=== PATIENT | male | born 1935 ===

== ENCOUNTER → 2019-05-26 | Emergency (ER) | payer OTHER ==
[~2019-05-26] VITALS: Ht 170.2 cm; Wt 74.4 kg
[~2019-05-26] MED LIST: ASPIR 8181 MG; ATORVASTATIN CA10 MG; LISINOPRIL10 MG; MONTELUKAST SOD10 MG; PRAVASTATIN SOD40 MG; SYNTHROID88 MCG
== END | disposition left against medical advice (07) ==
LOC: ER 08:38
DX: Z53.20 Procedure and treatment not carried out because of patient's decision for unspecified reasons (principal)